=== PATIENT | male | born 1955 | race Two or more races ===

== ENCOUNTER 2019-01-12 20:43 | Emergency (ER) | payer SELFPAY ==
[~2019-01-12] VITALS: Ht 170.2 cm; Wt 75.0 kg
[2019-01-12 20:50] VITALS: BP 144/90
== END 2019-01-12 23:59 | disposition left against medical advice (07) ==
LOC: ER 20:43
DX: R07.0 Pain in throat (principal); Z53.21 Procedure and treatment not carried out due to patient leaving prior to being seen by health care provider